=== PATIENT | female | born 1945 | race Hispanic/Latino ===

== ENCOUNTER 2022-02-19 09:51 | Emergency (ER) | payer MEDICARE ==
[~2022-02-19] VITALS: Ht 152.4 cm; Wt 121.1 kg
[~2022-02-19 09:51] MED LIST: AMLO-258 PO; ASPI-556 PO; FISH1CAP27 PO; GARL1TAB2 PO; IBAN150T21 PO; LEVO100T12 PO; OMEP40CA21 PO; OXYBUTYNIN PO; PRAV40TA3 PO; PSYL0.526 PO
[2022-02-19] MEDS ORDERED: OXYB5TAB15 PO (10:16)
[2022-02-19] MEDS ORDERED: LEVO112T7 PO (10:16)
[2022-02-19] MEDS ORDERED: APIX5TAB PO (10:16)
[2022-02-19] MEDS ORDERED: BUDE10.2 IH (10:16)
[2022-02-19] MEDS ORDERED: ALBUHFA IH (10:16)
[2022-02-19] MEDS ORDERED: LACT1CAP80 PO (10:16)
[2022-02-19] MEDS ORDERED: LETR2.5T7 PO (10:16)
[2022-02-19] MEDS ORDERED: GABA-529 PO (10:16)
[2022-02-19] MEDS ORDERED: FOLI1 PO (10:16)
[2022-02-19 10:30] LABS: APPEARANCE,URINE CLEAR (CLEAR); BILIRUBIN,URINE NEGATIVE (NEGATIVE); COLOR,URINE YELLOW (YELLOW); GLUCOSE, URINE (UA) NEGATIVE (NEGATIVE); KETONES,URINE NEGATIVE (NEGATIVE); LEUKOCYTE ESTERASE ,URINE TRACE (NEGATIVE); NITRATE,URINE POSITIVE (NEGATIVE); OCCULT BLOOD,URINE NEGATIVE (NEGATIVE); PH,URINE 6.5 (5.0-8.0); PROTEIN,URINE NEGATIVE (NEGATIVE); UROBILINOGEN,URINE 0.2 mg/dL (0.2-1.0)
[2022-02-19 10:39] LABS: BASOPHILS % (AUTO) 0.7 % (0.0-5.0); EOSINOPHILS % (AUTO) 3.3 % (0.0-8.0); HEMATOCRIT 26.2 % (36-48); MEAN CORPUSCULAR HEMOGLOBIN 22.9 pg (27.0-33.0); MEAN CORPUSCULAR HGB CONC 27.5 g/dL (32.0-36.0); MEAN CORPUSCULAR VOLUME 83.4 fL (79-99); MONOCYTES % (AUTO) 8.7 % (3.0-13.0); NEUTROPHILS % (AUTO) 58.6 % (40.0-77.0); PLATELET COUNT (AUTO) 275 K/uL (130-400); RED BLOOD CELL COUNT(AUTO) 3.14 MIL/uL (4.00-5.50); RED CELL DISTRIBUTION WIDTH 17.8 % (11.0-15.5)
[2022-02-19 10:52] LABS: CREATININE 1.1 mg/dL (0.5-1.5); POTASSIUM 4.2 mmol/L (3.5-5.1)
[2022-02-19 10:56] LABS: BACTERIA,URINE Many /HPF (None Seen); RBC,URINE 0-1 /HPF (0-1); SQUAMOUS EPITHELIAL CELL,UR Rare /HPF (0-2); WBC,URINE None Seen /HPF (0-1)
[2022-02-19 10:56] LABS: TOTAL PROTEIN, SERUM 7.1 g/dL (6.0-8.3)
[2022-02-19 10:58] LABS: INR 0.93 (0.85-1.15); PROTHROMBIN TIME 10.2 SEC (9.6-11.6)
[2022-02-19 11:00] LABS: PARTIAL THROMBOPLASTIN TIME 25.9 SEC (26.3-35.5)
[2022-02-19 13:16] VITALS: BP 113/55
[2022-02-19 13:17] LABS: % IRON SATURATION 3.3 % (22-44)
== END 2022-02-19 13:19 | disposition home or self-care (01) ==
LOC: EDH 09:51
DX: D64.9 Anemia, unspecified (principal); Z79.01 Long term (current) use of anticoagulants; Z79.51 Long term (current) use of inhaled steroids; Z79.82 Long term (current) use of aspirin; Z79.899 Other long term (current) drug therapy; Z85.3 Personal history of malignant neoplasm of breast
CPT/HCPCS: 36415; 80053; 81001; 82270; 83540; 83550; 85025; 85610; 85730; 86850; 86900; 86901; 87077; 87088; 87186